=== PATIENT | male | born 1980 | race Caucasian/White ===

== ENCOUNTER 2017-07-31 08:21 | Observation (INO) | payer OTHER, MEDICAID ==
[~2017-07-31] VITALS: Ht 165.1 cm; Wt 117.9 kg
[2017-07-31 08:24] VITALS: BP 140/75
--- NOTE | 2017-07-31 08:35 | NUR ---
37/M BIB MOTHER C/O NAUSEA , DIARRHEA & GENERALIZED ABDOMINAL PAIN X 3 DAYS. PT STATES DIARRHEA X 3 EPISODES X TODAY. SKIN IS PINK/WARM/DRY; AAOX4 WITH EVEN AND STEADY GAIT; LUNGS CLEAR BL; PATIENT STATES SHARP PAIN OF 9/10 AT THIS TIME; PATIENT POSITIONED FOR COMFORT; HOB ELEVATED; BEDRAILS UP X2; BED DOWN. ER MADE AWARE OF PT STATUS. Addendum: 07/31/17 at 1105 by MED1 REMOVES 2 ABDOMINAL POLYPS FOR 5 YEARS AGO FROM [facility].
[2017-07-31] MEDS ORDERED: ONDANSETRON 4 MG/2 ML VIAL IVP ONE (08:55)
[2017-07-31] MEDS ORDERED: HYDROmorphone 1 MG/ML AMP IVP ONE (08:55)
[2017-07-31 09:51] LABS: BASOPHILS # (AUTO) 0.2 K/uL (0.00-0.22); BASOPHILS % (AUTO) 2.7 % (0.0-2.0); EOSINOPHILS # (AUTO) 0.1 K/uL (0-0.4); EOSINOPHILS % (AUTO) 2.1 % (0.0-4.0); HEMATOCRIT 48.3 % (36-52); LYMPHOCYTES % (AUTO) 15.9 % (20.5-51.1); MEAN CORPUSCULAR HEMOGLOBIN 30 pg (27-31); MEAN CORPUSCULAR HGB CONC 33 g/dL (33-37); MEAN CORPUSCULAR VOLUME 92 fL (80-94); MONOCYTES # (AUTO) 0.9 K/uL (0.8-1.0); MONOCYTES % (AUTO) 15.2 % (1.7-9.3); NEUTROPHILS % (AUTO) 64.1 % (42.2-75.2); PLATELET COUNT (AUTO) 230 K/uL (140-450); RED BLOOD CELL COUNT(AUTO) 5.27 MIL/uL (4.20-6.10); RED CELL DISTRIBUTION WIDTH 12.4 % (11.6-13.7); WHITE BLOOD COUNT (AUTO) 6.2 K/uL (4.8-10.8)
--- NOTE | 2017-07-31 10:03 | NUR ---
Patient appears to be resting comfortably in bed. BP 145/89,P 73/MIN, Respirations even and unlabored.WILL CONTINUE TO MONITOR.
--- NOTE | 2017-07-31 10:03 | NUR ---
PT BACK FROM CT, ACCOMPANIED BY GEOPHYSICAL LABORATORY SUPERVISOR.
[2017-07-31 10:05] LABS: ALBUMIN 3.5 g/dL (3.4-5.0); ANION GAP 8.5 (8-16); CARBON DIOXIDE 29.6 mmol/L (21-32); CREATININE 0.9 mg/dL (0.7-1.3); POTASSIUM 4.1 mmol/L (3.5-5.1); TOTAL BILIRUBIN 0.3 mg/dL (0.0-1.0)
--- NOTE | 2017-07-31 10:06 | NUR ---
MOTHER AT BEDSIDE.
--- NOTE | 2017-07-31 10:52 | NUR ---
Patient being reevaluated by DR FRANCO at bedside.
--- NOTE | 2017-07-31 11:27 | NUR ---
Patient will be admitted to care of DR URENA. Admited to TELE . Will go to room 119A. Belongings list completed. Report to TAINA HURT.
[2017-07-31] MEDS ORDERED: MORPHINE SULFATE 2 MG/ML SYR IVP PRN ×2 (11:30→15:05)
[2017-07-31] MEDS ORDERED: ACETAMINOPHEN 325 MG TAB PO PRN ×2 (11:30→15:05)
[2017-07-31] MEDS ORDERED: HYDROcodone/APAP 5/325 MG 1 TAB TAB PO PRN (11:30)
[2017-07-31] MEDS ORDERED: LORazepam 2 MG/ML VIAL IVP PRN (11:30)
[2017-07-31] MEDS ORDERED: ONDANSETRON 4 MG/2 ML VIAL IVP PRN (11:30)
[2017-07-31 11:35] VITALS: BP 124/79
--- NOTE | 2017-07-31 11:35 | NUR ---
RECEIVED PT FROM ER ASSISTED BY ER STAFF. PT AWAKE. ALERT ORIENTEDX4. NO SOB NOTED. COMPLAINS OF ABDOMINAL PAIN 05/19. SKIN INTACT, PT AMBULATORY BUT ON BEDREST. SAFETY PRECAUTION IN PLACE. CALL LIGHT WITHIN REACH.
[2017-07-31 11:58] LABS: FREE T4 (FREE THYROXINE) 0.78 ng/dL (0.76-1.46); PHOSPHORUS 3.8 mg/dL (2.5-4.9); THYROID STIMULATING HORMONE 1.34 uIU/mL (0.34-3.74)
[2017-07-31] MEDS: NACL 0.9% 1,000 ML IV SCH ×2 (12:23→21:27)
--- NOTE | 2017-07-31 12:23 | NUR ---
IVF NACL CONSUMED.
--- NOTE | 2017-07-31 13:21 | NUR ---
TALI FROM RADIOLOGY DEPT CAME TO UX DESIGNER PT FOR XRAY OF SMALL BOWEL PER WHEELCHAIR. PROVIDED WITH TICKET TO RIDE. NO SOB NOTED. VERBALIZED PAIN SUBSIDING FROM PREVIOUSLY GIVEN PAIN MED.
--- NOTE | 2017-07-31 14:00 | NUR ---
DR. ALBERT MADE AWARE THAT PT WILL GO TO RADIOLOGY DEPT AND TO WILL JUST INSERT NGT WHEN PT COMES BACK.
[2017-07-31] MEDS ORDERED: HYDROcodone/APAP 7.5/325 MG 1 TAB PO PRN (15:05)
[2017-07-31] MEDS ORDERED: DOCUSATE SODIUM 100 MG GELCAP PO PRN (15:05)
[2017-07-31] MEDS ORDERED: ONDANSETRON 4 MG/2 ML VIAL IM/IVP PRN (15:05)
[2017-07-31 15:54] LABS: PROTHROMBIN TIME 9.6 secs (10.8-13.4)
[2017-07-31 16:00] VITALS: BP 139/83
--- NOTE | 2017-07-31 16:00 | NUR ---
PT CAME BACK FROM XRAY WITH REFERENCE SERVICES HEAD DARIELA. PT ON STABLE CONDITION NO SOB, DENIES PAIN AT THIS TIME. PER RADIO TECH HE WILL COME BACK AT 1800 AND 2200 FOR ANOTHER XRAY.
--- NOTE | 2017-07-31 16:15 | NUR ---
NGT INSERTED, USING ASEPTIC TECHNIQUE. POSITIVE GASTRIC SECRETION AND POSITIVE GURGLING SOUND NOTED. HOOKED TO INTERMITTENT SUCTION. GASTRIC SECRETION OF CLOUDY IN COLOR WITH FOOD PARTICLES NOTED ON SUCTION CONTAINER. PT COMPLAINS FEELING UNCOMFORTABLE. VITAL SIGNS TAKEN AND RECORDED AND STABLE. NO SOB NOTED. PT ABLE TO TALK. BUT VERBALIZING HE DOESN'T WANT THE NGT. AN ORDER FOR STAT XRAY WAS MADE BY DR. DAVALOS. TO VERIFY PLACEMENT.
--- NOTE | 2017-07-31 16:45 | NUR ---
SINGLE SPINDLE SCREW MACHINE OPERATOR CAME TO DO XRAY OF NGT PLACEMENT. STOPPED INTERMITTENT SUCTION FOR NOW. AWAITING RESULT. PT STILL COMPLAINS OF FEELING UNCOMFORTABLE. WILL LET DR. ALBERT KNOW.
--- NOTE | 2017-07-31 17:00 | NUR ---
PT STILL COMPLAINING OF FEELING UNCOMFORTABLE WITH HIS NGT. AND WOULD WANT TO REMOVE IT ALREADY WITHOUT WAITING FOR THE XRAY FOR PLACEMENT AND DOESN'T WANT TO WAIT FOR DR. ALBERT TO SEE HIM. NGT WAS REMOVED. NO SOB NOTED.
--- NOTE | 2017-07-31 17:24 | NUR ---
DR. ALBERT CAME TO SEE PT.
--- NOTE | 2017-07-31 18:27 | NUR ---
PT KEPT CLEAN, DRY AND COMFORTABLE. NEEDS ATTENDED. STOOL SPECIMEN FOR OCCULT BLOOD AND OVA PARASITE NOTE YET COLLECTED, PT'S LAST BM WAS AT HOME. URINE SPECIMEN FOR URINALYSIS NOT YET COLLECTED. WILL ENDORSE TO NEXT SHIFT. PT MAINTAINED ON NPO. NO SOB NOTED. DENIES ANY PAIN OR DISCOMFORT AT THIS TIME. FAMILY AT BEDSIDE. WILL ENDORSE TO NEXT SHIFT, PT ON STABLE CONDITION, FOR CONTINUITY OF CARE.
--- NOTE | 2017-07-31 18:45 | NUR ---
DR RIZO, CAME TO SEE PT. WITH ORDERS MADE AND CARRIED OUT.
--- NOTE | 2017-07-31 19:15 | NUR ---
RECEIVED REPORT FROM DAY SHIFT RN, PT IS A/OX4, ON ROOM AIR. NO SOB NOTED. SKIN INTACT, 20G IV TO RIGHT AC INFUSING NS@100ML/HR. PT AMBULATORY BUT ON BEDREST. SAFETY PRECAUTION IN PLACE. UPDATED BOARD. DISCUSSED PLAN OF CARE WITH PT, PT VERBALIZED UNDERSTANDING. BED IN LOW POSITION, CALL LIGHT WITHIN REACH. WILL CONTINUE TO MONITOR.
[2017-07-31 20:00] VITALS: BP 125/74
--- NOTE | 2017-07-31 22:30 | NUR ---
INSTRUCTED PT TO NOT BEND ARM BECAUSE IV STOPS INFUSING, PT VERBALIZED UNDERSTANDING. PT IN STABLE CONDITION, NO SIGNS OF DISTRESS NOTED. NO C/O PAIN. BED IN LOW POSITION, CALL LIGHT WITHIN REACH. WILL CONTINUE TO MONITOR.
--- NOTE | 2017-07-31 22:45 | NUR ---
PT WALKED OUT OF ROOM TO NURSES STATION, PT GOT LIGHT HEADED. SAT PT DOWN ON CHAIR, WHEN ASKED WHY HE DIDNT USE CALL LIGHT PT STATED " I FORGOT, IM SORRY. I'M FINE NOW I CAN GO." INSTRUCTED PT TO STAY SEATED AND PUSHED PT BACK TO ROOM IN CHAIR. HELPED HIM TO BED AND INSTRUCTED HIM AGAIN ON USING CALL LIGHT. NO SIGNS OF DISTRESS NOTED, PT IN STABLE CONDITION. VS WNL. BED IN LOW POSITION, CALL LIGHT WITHIN REACH. WILL CONTINUE TO MONITOR.
[2017-08-01] VITALS: BP 139/79
--- NOTE | 2017-08-01 03:30 | NUR ---
PT VITAL SIGNS WNL. PT DENIES PAIN. PT IN STABLE CONDITION, NO SIGNS OF DISTRESS NOTED. BED IN LOW POSITION, CALL LIGHT WITHIN REACH. WILL CONTINUE TO MONITOR.
[2017-08-01 04:00] VITALS: BP 139/81
--- NOTE | 2017-08-01 05:30 | NUR ---
PT HAD BOWEL MOVEMENT. TOOK SAMPLE AND TOOK TO LAB. NO SIGNS OF DISTRESS NOTED. BED IN LOW POSITION, CALL LIGHT WITHIN REACH. WILL CONTINUE TO MONITOR.
--- NOTE | 2017-08-01 07:04 | NUR ---
RECEIVED REPORT FROM NIGHT NURSE, PT IS AAOX4, ON ROOM AIR, IV TO RIGHT AC 20G INFUSING WELL, SKIN INTACT, INITIAL ASSESSMENT COMPLETED, REVIEWED PLAN OF CARE WITH PT, PT VERBALIZED UNDERSTANDING. ALL SAFETY PRECAUTIONS MET. CALL LIGHT WITHIN REACH. WILL CONTINUE TO MONITOR.
--- NOTE | 2017-08-01 07:04 | NUR ---
ENDORSED PT TO DAY SHIFT RN. PT IN STABLE CONDITION, NO SIGNS OF DISTRESS NOTED.
[2017-08-01] MEDS: NACL 0.9% 1,000 ML IV SCH ×2 (07:27→17:27)
--- NOTE | 2017-08-01 07:27 | NUR ---
IVF COMPLETED AT THIS TIME.
[2017-08-01 07:50] VITALS: BP 134/89
--- NOTE | 2017-08-01 10:06 | NUR ---
PATIENT HAS BEEN SCREENED AND CATEGORIZED HIGH NUTRITION RISK. PATIENT WILL BE SEEN WITHIN 1-2 DAYS OF ADMISSION. 07/31/17-08/01/[address]
[2017-08-01 11:30] LABS: BASOPHILS # (AUTO) 0.2 K/uL (0.00-0.22); BASOPHILS % (AUTO) 3.8 % (0.0-2.0); EOSINOPHILS # (AUTO) 0.1 K/uL (0-0.4); HEMATOCRIT 49.5 % (36-52); HEMOGLOBIN 16.2 g/dL (12.0-18.0); LYMPHOCYTES # (AUTO) 0.9 K/uL (2.0-11.5); LYMPHOCYTES % (AUTO) 19.6 % (20.5-51.1); MEAN CORPUSCULAR HEMOGLOBIN 30 pg (27-31); MEAN CORPUSCULAR HGB CONC 33 g/dL (33-37); MEAN CORPUSCULAR VOLUME 93 fL (80-94); MONOCYTES # (AUTO) 0.8 K/uL (0.8-1.0); MONOCYTES % (AUTO) 16.3 % (1.7-9.3); NEUTROPHILS # (AUTO) 2.7 K/uL (1.8-7.7); NEUTROPHILS % (AUTO) 57.3 % (42.2-75.2); PLATELET COUNT (AUTO) 239 K/uL (140-450); RED BLOOD CELL COUNT(AUTO) 5.32 MIL/uL (4.20-6.10); RED CELL DISTRIBUTION WIDTH 12.8 % (11.6-13.7); WHITE BLOOD COUNT (AUTO) 4.7 K/uL (4.8-10.8)
[2017-08-01 12:01] VITALS: BP 127/81
[2017-08-01 12:02] LABS: ANION GAP 8.8 (8-16); CARBON DIOXIDE 34.4 mmol/L (21-32); POTASSIUM 4.2 mmol/L (3.5-5.1)
[2017-08-01 12:39] LABS: MAGNESIUM 2.3 mg/dL (1.8-2.4)
--- NOTE | 2017-08-01 12:46 | NUR ---
PT ATE ALL LUNCH TOLERATED WELL, PT BINDU ANY ABD PAIN OR NAUSEA. ALL NEEDS MET. WILL CONTINUE TO MONITOR.
[2017-08-01] MEDS ORDERED: SIMETHICONE 80 MG TAB.CHEW PO SCH (13:30)
--- NOTE | 2017-08-01 13:40 | NUR ---
DUE MEDICATION GIVEN. PT CURRENTLY AWAKE WATCHING TV. ALL NEEDS MET. CALL LIGHT WITHIN REACH.
--- NOTE | 2017-08-01 14:27 | NUR ---
08/01/17 RD INITIAL ASSESSMENT COMPLETED PLEASE REFER TO NUTRITION ASSESSMENT UNDER CARE ACTIVITY FOR ESTIMATED NUTRITIONAL NEEDS. 1. CONTINUE REGULAR DIET 2. PROVIDE NUTRITION THERAPY EDUCATION NEEDED 3. RD TO FOLLOW-UP 2-3 DAYS, HIGH RISK TAYA LUCIO RD
[2017-08-01] MEDS ORDERED: SIME80CT27 PO (15:14)
[2017-08-01] MEDS ORDERED: IBUP-1801 PO (15:15)
[2017-08-01 16:06] VITALS: BP 125/75
--- NOTE | 2017-08-01 16:33 | NUR ---
PER DR. RIZO PT IS DISCHARGE BY CONSULT FOLLOW UP IN A WEEK AT OFFICE.
--- NOTE | 2017-08-01 16:49 | NUR ---
PT CURRENTLY WALKING AROUND UNIT, PT BINDU ANY DIZZINESS. WILL CONTINUE TO MONITOR.
[2017-08-01 18:43] LABS: APPEARANCE,URINE CLEAR (CLEAR); BILIRUBIN,URINE NEGATIVE (NEGATIVE); BLOOD, URINE NEGATIVE (NEGATIVE); COLOR,URINE YELLOW (YELLOW); LEUKOCYTE ESTERASE ,URINE NEGATIVE (NEGATIVE); NITRITE, URINE NEGATIVE (NEGATIVE); UGLUCOSE NEGATIVE (NEGATIVE)
--- NOTE | 2017-08-01 18:50 | NUR ---
PT SIGNED ALL DISCHARGE PAPERWORK, DISCHARGE EDUCATION GIVEN, FOLLOW UP INFORMATION GIVEN, IV REMOVED TIP INTACT, ALL PERSONAL BELONGINGS WITH PT. AWAITING RIDE
--- NOTE | 2017-08-01 19:16 | NUR ---
PT WAS WALKED OUT TO FRONT LOBBY IN STABLE CONDITION.
--- NOTE | 2017-08-01 19:20 | NUR ---
IVF COMPLETED AT THIS TIME.
== END 2017-08-01 19:20 | disposition home or self-care (01) ==
LOC: MED 08:21 → MTU 11:16 → INTOOBSV 11:16
PROVIDERS: ADMIT Family Medicine; ATTEND Family Medicine
DX: K56.609 Unspecified intestinal obstruction, unspecified as to partial versus complete obstruction (principal); J18.9 Pneumonia, unspecified organism; R74.0 Nonspecific elevation of levels of transaminase and lactic acid dehydrogenase [LDH]; E66.01 Morbid (severe) obesity due to excess calories; Z68.41 Body mass index [BMI] 40.0-44.9, adult
CPT/HCPCS: 36415; 71010; 74000; 74176; 74250; 80048; 80053; 81003; 82150; 82272; 83036; 83615; 83690; 83735; 83880; 84100; 84436; 84439; 84443; 84479; 84484; 85025; 85610; 85730; 87081; 87086; 87177; 93005; 96361; 96374; 96375; 99285; G0378; J1170; J2270; J2405; J7030; Q0092

== ENCOUNTER 2017-12-22 17:47 | Emergency (ER) | payer MEDICAID, OTHER ==
[~2017-12-22] VITALS: Ht 172.7 cm; Wt 109.4 kg
[~2017-12-22 17:47] MED LIST: IBUP-1801 PO; SIME80CT27 PO
[2017-12-22 18:10] VITALS: BP 145/75
--- NOTE | 2017-12-22 18:20 | NUR ---
PATIENT PRESENTS TO ED WITH C/O BURNING EPIGASTRIC PAIN WITH NAUSEA X3 DAYS, DENIES ETOH/SMOKING, DENIES ANY BLEEDING IN STOOLS. HX OF GERD, COLONSCOPY 5 YEARS AGO. PATIENT STATES PAIN OF 9/10 AT THIS TIME; VSS; ER MD MADE AWARE OF PT STATUS.
[2017-12-22] MEDS: LIDOCAINE VISCOUS 2% 20 ML UDC PO ONE (18:30)
[2017-12-22] MEDS: ALUMINUM HYD/MAG/SIMETHICONE 30 ML UDC PO ONE (18:30)
[2017-12-22] MEDS: DICYCLOMINE HCL LIQUID 10 MG/5 ML UDC PO ONE (18:30)
--- NOTE | 2017-12-22 18:36 | NUR ---
Patient being evaluated by physician at bedside.
[2017-12-22 18:44] VITALS: BP 145/75
--- NOTE | 2017-12-22 18:44 | NUR ---
Patient discharged with v/s stable. Written and verbal after care instructions given and explained. Patient alert, oriented and verbalized understanding of instructions. Ambulatory with steady gait. All questions addressed prior to discharge. ID band removed. Patient advised to follow up with PMD. Rx of MYLANTA, OMEPRAZOLE given. Patient educated on indication of medication including possible reaction and side effects. Opportunity to ask questions provided and answered.
== END 2017-12-22 18:44 | disposition home or self-care (01) ==
LOC: MED 17:47
DX: R10.13 Epigastric pain (principal); R11.0 Nausea; Z79.899 Other long term (current) drug therapy
CPT/HCPCS: 99283